=== PATIENT | female | born 2005 | race Two or more races ===

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

== ENCOUNTER 2024-09-17 19:15 | Emergency (ER) | payer MEDICAID ==
[~2024-09-17] VITALS: Ht 165.1 cm; Wt 55.8 kg
[2024-09-17 20:08] VITALS: BP 132/80; TEMP 98.1; O2SAT 98
[2024-09-17] MEDS ORDERED: IBUP-1490 PO (20:28)
[2024-09-17] MEDS ORDERED: ACETAMINOPHEN 325 MG TABLET ONE (20:29)
[2024-09-17] MEDS ORDERED: IBUPROFEN 600 MG TABLET ONE (20:29)
[2024-09-17] MEDS: IBUPROFEN 600 MG TABLET PO ONE (20:34)
[2024-09-17] MEDS: ACETAMINOPHEN 325 MG TABLET PO ONE (20:34)
== END 2024-09-17 20:54 | disposition home or self-care (01) ==
LOC: ER 19:24
DX: R07.89 Other chest pain (principal); V43.62XA Car passenger injured in collision with other type car in traffic accident, initial encounter; Y93.89 Activity, other specified; Y92.410 Unspecified street and highway as the place of occurrence of the external cause; Y99.8 Other external cause status